=== PATIENT | female | born 1935 | race Caucasian/White ===

== ENCOUNTER 2017-04-16 05:23 | Day surgery (SDC) | payer MEDICARE, OTHER ==
[~2017-04-16] VITALS: Ht 160 cm; Wt 61.6 kg
[~2017-04-16 05:23] MED LIST: FISH OIL 1,0001 EAC9 PO; LEVOBUNOLOL HCL5 M1 OP; LEVOTHYROXINE100 MC1 PO; LIPITOR10 MG PO; PRAVASTATIN SOD20 M1 PO; REFRESH TEARS15 M1 OP; VITAMIN C500 M3 PO; VITAMIN D31000 UNI3 PO; WAL ITIN D PO; [UNRECOGNIZED DRUG - OTHER]
[2017-04-16 06:35] LABS: BASO % 0.5 % (0-2); EOS % 2.4 % (0-7); EOSINOPHIL ABSOLUTE COUNT 0.2 tho/cmm (0.0-0.7); HCT-HEMATOCRIT 42.9 % (34.0-49.0); HGB-HEMOGLOBIN 14.8 gm/dl (12.0-15.5); IMMATURE GRANULOCYTES ABSOLUTE 0.03 tho/cmm (0-0.03); IMMATURE GRANULOCYTES PERCENT 0.3 % (0-0.3); LYMPH % 22.2 % (20-45); LYMPH ABSOLUTE COUNT 1.9 tho/cmm (0.8-4.5); MCH (MEAN CORPUSCULAR HGB) 31.6 pg (28.0-32.0); MCHC MEAN CORPUSCULAR HGB CONC 34.5 % (32.0-36.0); MCV (MEAN CELL VOLUME) 91.5 fl (82.0-96.0); MEAN PLATELET VOLUME 10.4 cmc (9.4-12.4); NEUTROPHIL ABSOLUTE COUNT 5.5 tho/cmm (1.6-8.0); NEUTROPHIL-AUTOMATED 5.5 tho/cmm (1.6-8.0); NEUTROPHILS % 63.6 % (40-80); PLATELET COUNT 213 tho/cmm (150-450); RED BLOOD COUNT 4.69 mil/cmm (4.00-5.20); RED CELL DISTRIBUTION WIDTH 13.3 % (12.4-16.4); WHITE BLOOD COUNT 8.7 tho/cmm (4.0-10.0)
[2017-04-16 06:54] LABS: ANION GAP 12 mmol/L (0-20); BLOOD UREA NITROGEN 11 mg/dl (6-24); CALCIUM 9.3 mg/dl (8.5-10.5); CARBON DIOXIDE-VENOUS 28 mmol/L (22-32); CHLORIDE 104 mmol/l (96-110); CREATININE 0.64 mg/dl (0.50-1.10); GLUCOSE 89 mg/dL (70-110); POTASSIUM 3.4 mmol/L (3.7-5.1); SODIUM 141 mmol/L (135-145); eGFR VALUE FOR BLACK >90 mL/Min
[2017-04-17 13:01] LABS: HGB-HEMOGLOBIN 15.4 gm/dl (12.0-15.5); PLATELET COUNT 203 tho/cmm (150-450)
[2017-04-17 13:14] LABS: CREATININE 0.88 mg/dl (0.50-1.10); eGFR VALUE FOR BLACK 71 mL/Min
--- NOTE | 2017-04-17 15:19 | NUR ---
VIRTUAL CARE NOTE: PT RESTING ON BED STATES FEELING BETTER SINCE LAST ST.CATH DONE ON HER. DISCUSSED WITH PT POTENTIAL PRINCE NEEDS IF PT NOT ABLE TO URINATE AFTER THIS TIME, PT IS AWARE. NO DISCHARGE PLAN TODAY, POSSIBLE HOME TOMORROW. PT DENIES QUESTIONS OR NEEDS.
--- NOTE | 2017-04-17 18:47 | NUR ---
VIRTUAL CARE NOTE: ASSESSMENT DEFERRED. PT. SLEEPING.
[2017-04-18 05:52] LABS: ANION GAP 10 mmol/L (0-20); BLOOD UREA NITROGEN 7 mg/dl (6-24); CALCIUM 8.7 mg/dl (8.5-10.5); CARBON DIOXIDE-VENOUS 31 mmol/L (22-32); CHLORIDE 100 mmol/l (96-110); CREATININE 0.59 mg/dl (0.50-1.10); GLUCOSE 95 mg/dL (70-110); eGFR VALUE FOR BLACK >90 mL/Min
[2017-04-18 05:55] LABS: POTASSIUM 3.2 mmol/L (3.7-5.1)
[2017-04-18 07:39] LABS: ANION GAP 9 mmol/L (0-20); BLOOD UREA NITROGEN 7 mg/dl (6-24); CALCIUM 8.4 mg/dl (8.5-10.5); CARBON DIOXIDE-VENOUS 32 mmol/L (22-32); CHLORIDE 102 mmol/l (96-110); CREATININE 0.53 mg/dl (0.50-1.10); GLUCOSE 92 mg/dL (70-110); SODIUM 140 mmol/L (135-145); eGFR VALUE FOR BLACK >90 mL/Min
[2017-04-18 07:42] LABS: POTASSIUM 2.9 mmol/L (3.7-5.1)
[2017-04-18 07:54] LABS: SODIUM 138 mmol/L (135-145)
--- NOTE | 2017-04-18 10:14 | NUR ---
VIRTUAL CARE NOTE: 1014 PAGE RECEIVED-DC ORDERS WRITTEN 1045 DC INSTRUCTIONS STARTED. NOTED ORDER FOR SOFT DIET ENTERED. RN TO NOTIFY VN IF PT PHANI DIET & WHEN READY FOR DC INSTRUCTIONS. 1315- VN SPOKE W/ RN, WILL BEGIN DC PROCESS. PT WILL GO HOME W/ CATHETER IN PLACE. 1343- SAJAN RN CALLS VN FROM PT ROOM RE: DC TIME. VN WORKING ON DC, WILL NOTIFY NURSE WHEN INFORMATION READY, WILL RETURN FOR TEACHING. 1400- VERIFIED W/ DENIZ [facility] COORDINATOR [facility] TO FOLLOW-WILL SEE 04/19 1411- NURSE NOTIFIED DC INSTRUCTIONS READY TO PRINT, VN TO REVIEW W/ PT. 1412- PT AWAKE RESTING IN BED, FAMILY AT BEDSIDE. DC INSTRUCTIONS/MEDICATIONS REVIEWED ELECTRONICALLY W/ PT, BEDSIDE NURSE TO DO CATHETER CARE DEMONSTRATION W/ PT AT BEDSIDE. 1426- TEACHING COMPLETE VIA VN, SPOKE W/ JULIUS RN-CHARGE AND SAJAN RN-STENCIL TYPIST TO ARRANGE HANDS ON DEMONSTRATION FOR PRINCE CATH CARE. 1430- ROHINI RN & SAJAN RN AT BEDSIDE
[2017-04-18] MEDS ORDERED: ULTRAM50 M1 PO (12:46)
== END 2017-04-18 15:00 | disposition home health service (06) ==
LOC: SRG 05:23 → SHSB 05:23 → SRG 05:30 → ORW 07:37 → PACU 09:07 → 5WD 11:06 → SRG 04-18 15:00
PROVIDERS: Anesthesiology; Surgery
PROC: 0WUF0JZ Supplement Abdominal Wall with Synthetic Substitute, Open Approach (ICD-10-PCS; principal; 2017-04-16)
DX: K43.0 Incisional hernia with obstruction, without gangrene (principal); I10 Essential (primary) hypertension; E03.9 Hypothyroidism, unspecified; E78.5 Hyperlipidemia, unspecified; Z79.899 Other long term (current) drug therapy; Z88.8 Allergy status to other drugs, medicaments and biological substances; Z87.891 Personal history of nicotine dependence
CPT/HCPCS: C1781; J0690; J1170; J1650; J1940; J2270; J2405; J2550; J3010